=== PATIENT | male | born 1980 | race Caucasian/White ===

== ENCOUNTER 2020-10-18 19:38 | Emergency (ER) | payer SELFPAY ==
[~2020-10-18 19:38] MED LIST: IBUPROFEN600 MG PO; NEOSPORIN OINT30 GM EXT
[2020-10-18] MEDS ORDERED: IBUPROFEN800 MG PO (21:15)
== END 2020-10-18 21:19 | disposition home or self-care (01) ==
LOC: ER1 19:38
DX: S63.652A Sprain of metacarpophalangeal joint of right middle finger, initial encounter (principal); S63.654A Sprain of metacarpophalangeal joint of right ring finger, initial encounter; S63.621A Sprain of interphalangeal joint of right thumb, initial encounter; X58.XXXA Exposure to other specified factors, initial encounter
CPT/HCPCS: 73130; 99283